=== PATIENT | female | born 1965 | race African-American/Black ===

== ENCOUNTER 2021-04-12 09:12 | Emergency (ER) | payer MEDICAID ==
[~2021-04-12] VITALS: Ht 182.9 cm; Wt 82.0 kg
[2021-04-12] MEDS ORDERED: IBUP-2030 MT (10:11)
[2021-04-12] MEDS ORDERED: CYCL10TA7 MT (10:12)
[2021-04-12 10:13] VITALS: BP 166/116
[2021-04-12] MEDS ORDERED: KETOROLAC 60MG/2ML VIAL IM ONE (10:15)
== END 2021-04-12 11:15 | disposition home or self-care (01) ==
LOC: ER 09:12
DX: M54.31 Sciatica, right side (principal)
CPT/HCPCS: 72100; 73502; 96372; 99284; J1885